=== PATIENT | male | born 1945 | race Caucasian/White ===

== ENCOUNTER 2017-12-01 13:21 | Emergency (ER) | payer MEDICARE, OTHER, MEDICAID ==
[2017-12-01] MEDS: SOD CHLORIDE 0.9% 1,000 ML IV (17:36)
[2017-12-01 17:59] LABS: ABNORMAL IP MESSAGE 1; HEMATOCRIT 60.5 % (42.0-52.0); HEMOGLOBIN 16.5 g/dl (14.0-18.0); MEAN CORPUSCULAR HEMOGLOBIN 16.9 pg (29.0-33.0); MEAN CORPUSCULAR HGB CONC 27.3 g/dl (32.0-37.0); MEAN CORPUSCULAR VOLUME 61.8 fl (82.0-101.0); NUCLEATED RED BLOOD CELLS% 0.2 /100WBC (0.0-0.0); PLATELET COUNT 343 10^3/UL (140-415); POSITIVE DIFF @See below; RED CELL DISTRIBUTION WIDTH 25.9 % (11.5-14.5)
[2017-12-01 17:59] LABS: WHITE BLOOD COUNT 25.6 10^3/ul (4.8-10.8)
[2017-12-01 18:22] LABS: ALANINE AMINOTRANSFERASE 32 IU/L (13-69); ALBUMIN 4.6 g/dl (3.3-4.9); ALBUMIN/GLOBULIN RATIO 1.48; ALKALINE PHOSPHATASE 125 IU/L (42-121); ANION GAP 16 (8-16); ASPARTATE AMINO TRANSFERASE 37 IU/L (15-46); BILIRUBIN,INDIRECT 1.1 mg/dl (0-1.1); BILIRUBIN,TOTAL 1.1 mg/dl (0.2-1.3); BLOOD UREA NITROGEN 15 mg/dl (7-20); CALCIUM 9.5 mg/dl (8.4-10.2); CARBON DIOXIDE 28 mmol/L (21-31); CHLORIDE 101 mmol/L (97-110); CREATININE 0.69 mg/dl (0.61-1.24); GLUCOSE 80 mg/dl (70-220); LIPASE 107 U/L (23-300); SODIUM 141 mmol/L (135-144); TOTAL PROTEIN 7.7 g/dl (6.1-8.1)
[2017-12-01 18:42] LABS: RED BLOOD COUNT 9.79 10^6/ul (4.70-6.10)
[2017-12-01 18:43] LABS: ADD MAN DIFF? YES
[2017-12-01 18:44] LABS: PATH REVIEW? YES
[2017-12-01 18:50] LABS: ADD UMIC NO; UR ASCORBIC ACID NEGATIVE (NEGATIVE); UR BILIRUBIN (Dip) NEGATIVE (NEGATIVE); UR BLOOD (Dip) NEGATIVE (NEGATIVE); UR CLARITY CLEAR (CLEAR); UR COLOR YELLOW (YELLOW); UR GLUCOSE (Dip) NEGATIVE (NEGATIVE); UR KETONES (Dip) NEGATIVE (NEGATIVE); UR LEUKOCYTE ESTERASE (Dip) NEGATIVE Leu/ul (NEGATIVE); UR NITRITE (Dip) NEGATIVE (NEGATIVE); UR SPECIFIC GRAVITY (Dip) 1.009 (1.003-1.030); UR TOTAL PROTEIN (Dip) NEGATIVE (NEGATIVE); UR UROBILINOGEN (Dip) NEGATIVE (NEGATIVE)
[2017-12-01 20:01] LABS: BAND NEUTROPHILS % (M) 8 % (0-4); EOSINOPHILS % (M) 8 % (0.0-7.0); LYMPHOCYTES % (M) 8 % (15-51); MONOCYTE # 0.3 10^3/ul (0.3-0.9); MONOCYTE #M 0.2 10^3/ul (0.3-0.9); MONOCYTES % (M) 1 % (0-11); SEG NEUT #M 19.7 10^3/ul (1.7-7.5); SEGMENTED NEUTROPHILS (M) % 75 % (39-77)
[2017-12-01 20:02] LABS: ANISOCYTOSIS 1+ (0-0); OVALOCYTES 1+ (0-0); POLYCHROMASIA FEW (0-0); TEAR DROP CELLS FEW (0-0)
[2017-12-01 21:55] LABS: INR 1.46; PT RATIO 1.4
[2017-12-01 21:56] LABS: PARTIAL THROMBOPLASTIN TIME 44.5 Sec (25.0-35.0)
== END 2017-12-01 20:50 | disposition home or self-care (01) ==
LOC: E/R 13:21
DX: K92.0 Hematemesis (principal); R16.1 Splenomegaly, not elsewhere classified; I86.4 Gastric varices; D72.829 Elevated white blood cell count, unspecified; F17.210 Nicotine dependence, cigarettes, uncomplicated
CPT/HCPCS: 71045; 71250; 74176; 80053; 81003; 83690; 85025; 85610; 85730; 99285-25